=== PATIENT | male | born 1945 | race Caucasian/White ===

== ENCOUNTER → 2016-05-16 | Outpatient (CLI) | payer OTHER ==
[~2016-05-16] MED LIST: GADOBUTROL 10 ML VIAL IVP ONE
--- NOTE | 2016-05-17 12:19 | MR ---
MRI lumbar spine before and following gadolinium enhancement May 17, 2016 HISTORY: Back pain, urinary retention. Metastatic prostate cancer C 61, [id number]. PSA of 80.8. Technique: Axial, sagittal, and coronal images were obtained. Pulse sequences include T1-weighted, fa st T2-weighted, and inversion recovery sequences. Standard T1-weighted axial and fat suppressed sagit george images were obtained after uneventful administration of 9 mL of gadolinium contrast, intravenousl y. FINDINGS: All bones are diffusely abnormal. On T2-weighted images, abnormalities are mostly dark, com patible with osteoblastic metastases. Widespread foci of dark signal on T1-weighted images show nodul ar enhancement after gadolinium. Contours of cortical endplates are mildly concave, centrally, at the inferior cortical endplate of L1 and superior cortical endplate of L3. Intervertebral discs are mild ly degenerated at multiple levels, with no prolapse of disc. Spinal canal is adequate, with no spinal stenosis. Conus medullaris is at the level of T12-L1, and no masses are found. Facet joints are mild ly degenerated and multiple levels, worst at L2-L3. IMPRESSION: Widespread severe osseous metastases, with minimal cortical endplate deformities at L1 an d L3.
== END ==
LOC: FIMAGING 19:35
PROVIDERS: ATTEND Internal Medicine Hematology & Oncology
DX: C79.51 Secondary malignant neoplasm of bone (principal); C61 Malignant neoplasm of prostate
CPT/HCPCS: 72158; A9585

== ENCOUNTER → 2016-05-17 | Outpatient (CLI) | payer OTHER ==
--- NOTE | 2016-05-17 12:58 | NM ---
Nuclear Medicine Whole Body Bone Scan Clinical Indications: Restaging of metastatic prostate cancer. Rising PSA. Comparison Studies: September 25, 2015. MRI lumbar spine May 16, 2016. Technique: 22.8 mCi technetium 99m MDP were injected intravenously. Delayed images of the skeleton were obtained in anterior and posterior projections. Findings: Diffusely increased uptake is present throughout the axial and appendicular skeleton. There is also decreased visualization of the kidneys. Findings are compatible with a SuperScan. This findi ng corresponds to markedly abnormal marrow signal intensity on MRI examination of the lumbar spine pe rformed one day earlier. There is additional increased activity around the shoulders, elbows, wrists, hips, knees, and ankles suggestive of an inflammatory polyarthropathy.. Impression: 1. Diffuse increased uptake throughout the axial and appendicular skeleton compatible SuperScan. 2. Polyarthropathy.
== END ==
LOC: FIMAGING 07:58
PROVIDERS: ATTEND Internal Medicine Hematology & Oncology
DX: C61 Malignant neoplasm of prostate (principal); R97.20 Elevated prostate specific antigen [PSA]
CPT/HCPCS: 78306; A9503

== ENCOUNTER → 2016-06-06 | Outpatient (CLI) | payer OTHER ==
[~2016-06-06] MED LIST changes: +ACETAMINOPHEN 325 MG TAB PO ONE; +FUROSEMIDE 20 MG/2 ML VIAL IVP ONE; -GADOBUTROL 10 ML VIAL IVP ONE; +diphenhydrAMINE 25 MG CAP PO ONE
[2016-06-06 09:02] LABS: % IMMATURE GRANULOCYTES 8.2 % (0.0-1.1); ABSOLUTE IMMATURE GRANULOCYTES 0.35 10^3/uL (0-0.10); ABSOLUTE NRBC COUNT 0.13 10^3/uL (0-0.01); HEMOGLOBIN 7.8 g/dL (13.7-17.5); MEAN CELL HEMOGLOBIN 28.3 pg (27.9-34.1); MEAN CELL HEMOGLOBIN CONC. 33.9 g/dL (32.4-36.7); MEAN CELL VOLUME 83.3 fL (81.5-99.8); MEAN PLATELET VOLUME 9.7 fL (8.7-11.7); RED BLOOD CELL COUNT 2.76 10^6/uL (4.40-6.38); RED CELL DISTRIBUTION WIDTH 15.6 % (11.5-15.2)
[2016-06-06 10:11] LABS: ALANINE AMINOTRANSFERASE 29 IU/L (21-72); ALBUMIN 3.4 g/dL (3.5-5.0); ALKALINE PHOSPHATASE 197 IU/L (38-126); ANION GAP 14 mEq/L (8-16); ASPARTATE AMINOTRANSFERASE 69 IU/L (17-59); BILIRUBIN,TOTAL 1.8 mg/dL (0.1-1.4); CALCIUM 8.4 mg/dL (8.5-10.4); CARBON DIOXIDE 25 mEq/l (22-31); CHLORIDE 97 mEq/L (97-110); CREATININE 1.1 mg/dL (0.7-1.3); GLOMERULAR FILTRATION RATE > 60; GLUCOSE 214 mg/dL (70-100); POTASSIUM 3.6 mEq/L (3.5-5.2); SODIUM 136 mEq/L (134-144); TOTAL PROTEIN 6.1 g/dL (6.3-8.2)
[2016-06-06 10:46] LABS: HEMOGLOBIN A1C 6.2 % (4.0-6.0)
[2016-06-06 10:53] LABS: HEMATOCRIT 23.5 % (40.0-51.0)
== END ==
LOC: RMCCLAB 08:41 → EDSTATUS 22:02 → FOBOP 22:03
PROVIDERS: ATTEND Internal Medicine Hematology & Oncology
PROC: 30233N1 Transfusion of Nonautologous Red Blood Cells into Peripheral Vein, Percutaneous Approach (ICD-10-PCS; principal; 2016-06-06)
DX: C61 Malignant neoplasm of prostate (principal); C79.51 Secondary malignant neoplasm of bone
CPT/HCPCS: 36430; P9021; P9016

== ENCOUNTER → 2017-10-28 | Outpatient (CLI) | payer OTHER | LOC: FIMAGING 13:12 | PROVIDERS: ATTEND Nurse Practitioner | DX: R06.02 Shortness of breath (principal); C61 Malignant neoplasm of prostate; C79.51 Secondary malignant neoplasm of bone ==

== ENCOUNTER → 2017-12-20 | Outpatient (CLI) | payer OTHER ==
[~2017-12-20] MED LIST changes: -ACETAMINOPHEN 325 MG TAB PO ONE; -FUROSEMIDE 20 MG/2 ML VIAL IVP ONE; +GADOBUTROL 10 ML VIAL IVP ONE; -diphenhydrAMINE 25 MG CAP PO ONE
== END ==
LOC: FIMAGING 09:17
PROVIDERS: ATTEND Nurse Practitioner
DX: M54.5 Low back pain (principal); C61 Malignant neoplasm of prostate; C79.51 Secondary malignant neoplasm of bone; M51.36 Other intervertebral disc degeneration, lumbar region
CPT/HCPCS: 72158; A9585